=== PATIENT | male | born 1995 | race Caucasian/White ===

== ENCOUNTER → 2018-03-28 10:31 | Outpatient (CLI) | payer OTHER, SELFPAY ==
[2018-03-28 12:43] LABS: Erythrocyte Sedimentation Rate < 1 mm/hr (0-15)
[2018-03-28 12:55] LABS: Absolute Lymphocyte Count 1.82 X10^3/ul (0.83-4.51); Absolute Neutrophil Count 2.5 X10^3/uL (2.0-7.7); Basophil# 0.01 X10^3/uL; Basophil% 0.2 % (0-1); Eosinophil# 0.07 X10^3/uL; Eosinophils% 1.4 % (0-5); Hematocrit 43.5 % (40-54); Hemoglobin 14.5 g/dl (13.0-16.5); Lymphocyte # 1.82 X10^3/ul (4.0); Lymphocyte % 37.5 % (19-41); Mean Corp Hgb Conc 33.3 g/gl (32-36); Mean Corpuscular Hgb 30.5 pg (27.0-32.0); Mean Corpuscular Volume 91.4 fL (80-94); Mean Platelet Vol. 12.2 fl (6.2-12.0); Monocyte# 0.42 X10^3/uL; Monocyte% 8.7 % (0-10); Neutrophil # 2.51 X10^3/uL (2.7-7.7); Neutrophil % 51.8 % (47-70); Platelet Count 195 K/mm3 (150-450); RBC Distribution Width CV 12.5 % (11.6-14.6); RBC Distribution Width SD 41.7 fl (35.1-43.9); Red Blood Count 4.76 M/mm3 (4.6-6.2); White Blood Count 4.9 K/mm3 (4.4-11.0)
[2018-03-28 12:56] LABS: ALB/GLOB Ratio 1.2 RATIO (0.9-2.4); AST(SGOT) 19 U/L (15-37); Alanine Aminotransfer ALT/SGPT 27 U/L (16-61); Alkaline Phosphatase 78 U/L (45-117); Anion Gap 6 (5-15); BUN 20 mg/dL (7-18); BUN/Creat Ratio 17.5 RATIO (10-20); Chloride 106 mmol/L (98-107); Creatinine, Serum 1.14 mg/dL (0.70-1.30); EST Glomerular Filtration Rate 86 mL/min (>60); Est Glom Filt Rate - Afr Amer 104 mL/min (>60); Globulin 3.4 g/dL (2.2-4.2); Glucose 82 mg/dL (74-106); Protein, Total 7.4 g/dL (6.4-8.2); Sodium Level 141 mmol/L (136-145); Thyroid Stim Hormone (TSH) 1.28 uIU/mL (0.358-3.74)
[2018-03-28 12:57] LABS: POSITIVE COUNT NO; POSITIVE DIFFERENTIAL NO; POSITIVE MORPHOLOGY NO
[2018-03-30 07:07] LABS: Endomysial Antibody IgA Negative (Negative); Immunoglobulin A 165 mg/dL (90-386)
[2018-03-30 11:17] LABS: Deamidated Gliadin IgA 3 units (0-19); Deamidated Gliadin IgG 2 units (0-19); H. Pylori Antibody (IgG) 0.22 (0.00-0.79); t-Transglutaminase IgA <2 U/mL (0-3)
[2018-03-31 08:13] LABS: Beef <0.10 kU/L (Class 0); Corn <0.10 kU/L (Class 0); Egg, Whole <0.10 kU/L (Class 0); Milk (Cow) <0.10 kU/L (Class 0); Peanut <0.10 kU/L (Class 0); Pork <0.10 kU/L (Class 0); Soybean <0.10 kU/L (Class 0); Wheat <0.10 kU/L (Class 0)
[2018-03-31 09:28] LABS: Chocolate <0.10 kU/L (Class 0)
== END ==
PROVIDERS: Family Provider Family Medicine; PCP Family Medicine; Visit Provider Family Medicine
DX: R10.9 Unspecified abdominal pain (principal)
CPT/HCPCS: 36415; 80053; 82784; 83516; 84443; 85025; 85652; 86003; 86005; 86255; 86677

== ENCOUNTER → 2020-03-27 | Outpatient (CLI) | payer BC, SELFPAY | END | disposition home or self-care (01) | LOC: MTDU 10:40 | PROVIDERS: PCP Family Medicine; Referring Provider Orthopaedic Surgery; Visit Provider Orthopaedic Surgery | DX: Z11.59 Encounter for screening for other viral diseases (principal) | CPT/HCPCS: 87635; 94799; U0003 ==